=== PATIENT | female | born 1945 | race Caucasian/White ===

== ENCOUNTER → 2017-03-03 | Outpatient (CLI) | payer BC ==
--- NOTE | 2017-03-03 08:47 | KCIC ---
PROCEDURE Complete abdominal ultrasound. HISTORY Elevated liver function tests. TECHNIQUE Real-time ultrasound imaging of the abdomen is performed. COMPARISON None. FINDINGS The liver measures 17.9 cm in length and is homogeneous in appearance. Portal flow is hepatopetal. The pancreas is homogeneous in appearance and no focal enlargement is seen. The gallbladder appears normal and no gallstones or gallbladder wall thickening is seen. No pericholecystic fluid is seen. No positive Henao's sign was elicited during transducer examination of the gallbladder. No extrahepatic biliary ductal dilatation is seen and the extrahepatic bile duct measures 3 mm. The right kidney measures 11.1 cm in length and no hydronephrosis or renal mass or perinephric fluid collection is seen. The left kidney measures 11.2 cm in length and no hydronephrosis or renal mass or perinephric fluid collection is seen. The spleen measures 10.5 cm in length and is homogeneous in appearance. No focal aneurysmal dilatation of the abdominal aorta is seen. Proximal abdominal aorta is obscured due to overlying bowel gas. The IVC is unremarkable. No ascites is seen. IMPRESSION Mild hepatomegaly. Electronically signed by: Pipe Corcoran MD (March 03, 2017 08:46:04)
== END | disposition home or self-care (01) ==
LOC: KCIC US 07:49
PROVIDERS: ATTEND Family Medicine
DX: R16.0 Hepatomegaly, not elsewhere classified (principal)
CPT/HCPCS: 76700

== ENCOUNTER 2020-10-01 05:25 | Emergency (ER) | payer BC, OTHER ==
[~2020-10-01] VITALS: Ht 154.9 cm; Wt 81.8 kg
--- NOTE | 2020-10-01 06:42 | RAD ---
SHOULDER 2+V LEFT, HUMERUS LEFT DATE: 10/01/2020 5:43 AM INDICATION: Reason: FALL / Spl. Instructions: / History: COMPARISON: None. FINDINGS: Acute fracture of the proximal humerus involving the surgical neck with impaction, and greater tuberosity avulsion. Glenohumeral joint is congruent. Moderate degenerative changes of the AC joint. IMPRESSION: Acute displaced proximal humerus fracture. Electronically signed by: John Escobar MD (10/01/2020 6:39 AM) [facility]
--- NOTE | 2020-10-01 06:42 | RAD ---
FOREARM LEFT, HAND LEFT 3V DATE: 10/01/2020 5:43 AM INDICATION: FALL, pain COMPARISON: None. FINDINGS: Bones: There is no evidence of acute fracture or dislocation. Joints: Multifocal mild degenerative changes. Miscellaneous: None. IMPRESSION: No evidence of acute forearm or hand fracture. Electronically signed by: John Escobar MD (10/01/2020 6:37 AM) [facility]
--- NOTE | 2020-10-01 06:50 | ED.ADGEN ---
Past Medical History Past Medical History: Diabetes-Type II, Hypertension Past Surgical History: Other Additional Past Surgical Histo: Stent placement X 8 Smoking Status: Never Smoker Alcohol Use: Rarely General Adult EDM: Chief Complaint: UPPER EXTREMITY INJURY HPI: HPI: Patient is 74-year-old female who presents to the emergency room complaining of left upper arm pain that radiates through her arm. She fell 2 days ago while carrying cans up the steps. She had immediate onset of pain that has progressively gotten worse. She is having a hard time moving her arm today. She denies any numbness. She denies any weakness in her hand. She is taken [id number] medications at home without any relief. She states that the arm is swollen and bruised. Review of Systems: Review of Systems: Complete ROS is negative unless otherwise documented in HPI Current Medications: Current Medications Medications (Trade) Dose Ordered Sig/Tre Start Time Stop Time Status Last Admin Dose Admin Oxycodone/ Acetaminophen (Percocet 5/325) 1 tab 1X ONCE 10/01/20 07:00 10/01/20 07:01 DC 10/01/20 06:27 1 TAB Allergies: Allergies: Allergies Coded Allergies Type Severity Reaction Last Updated Verified No Known Drug Allergies 10/01/20 No Physical Exam: PE: General: Awake, alert, NAD. Well Nourished, well hydrated. Cooperative HEENT: Atraumatic, EOMI, PERRL, airway patent, moist oral mucosa Neck: Supple, trachea midline Respiratory: CTA bilaterally, normal effort, no wheezing/crackles CV: RRR, no murmur, cap refill <2 GI: Soft, nondistended, nontender, no masses MSK: Left upper extremity: Significant swelling and bruising to the upper arm with tenderness upon palpation, decreased range of motion due to pain, normal range of motion and strength of the hand and elbow, 2+ radial pulse, intact sensation including over the deltoid Skin: Warm, dry, intact Neuro: A&O x3, speech NL, sensory and motor grossly intact, no focal deficits Psych: Normal affect, normal mood, not suicidal or homicidal Current Patient Data: Vital Signs: Vital Signs Date Time Temp Pulse Resp B/P (MAP) Pulse Ox O2 Delivery O2 Flow Rate FiO2 10/01/20 06:43 92 18 175/79 (111) 95 Room Air 10/01/20 05:30 98.5 98.5 EKG: EKG: [] Heart Score: Risk Factors: Risk Factors: DM, Current or recent (<one month) smoker, HTN, HLP, family history of CAD, obesity. Risk Scores: Score 0 - 3: 2.5% MACE over next 6 weeks - Discharge Home Score 4 - 6: 20.3% MACE over next 6 weeks - Admit for Clinical Observation Score 7 - 10: 72.7% MACE over next 6 weeks - Early Invasive Strategies Radiology/Procedures: Radiology/Procedures: [] Course & Med Decision Making: Course & Med Decision Making Pertinent Labs and Imaging studies reviewed. (See chart for details) Patient is 74-year-old female presents to the emergency room complaining of pain after a fall 2 days ago. Patient has a humerus fracture. She will be placed in immobilizer. I discussed the case with Dr. Berg who will see her in clinic tomorrow. Patient will be discharged home with Percocet. Patient's test results and vitals while in the ED were fully reviewed and discussed with the patient. Patient is stable and at this time does not need admission to the hospital. We have discussed strict return precautions and the importance of following up with their Primary Care Physician. Patient stated understanding and was given an opportunity to ask any questions. Patient is in agreement with plan. Debi Disclaimer: Debi Disclaimer: This electronic medical record was generated, in whole or in part, using a voice recognition dictation system. Departure Departure Impression: Primary Impression: Fracture, humerus closed Disposition: 01 DC HOME SELF CARE/HOMELESS Condition: STABLE Referrals: PHUONG CRUZ MD (PCP) Patient Instructions: Humerus Fracture, Treated with Immobilization Scripts Oxycodone/Apap 5-325 (PERCOCET 5-325 MG TABLET ) 1 Each Tablet 1 TAB PO PRN Q6HRS PRN for PAIN, #12 TAB 0 Refills Prov: ARLIN LATIF MD 10/01/20 ARLIN LATIF MD Oct 01, 2020 06:50
[2020-10-01] MEDS ORDERED: OXYC1TAB15 PO (06:56)
[2020-10-01 07:00] VITALS: BP 159/85
[2020-10-01] MEDS ORDERED: oxyCODONE/APAP 5/325 1 TAB TABLET PO ONE (07:00)
== END 2020-10-01 07:54 | disposition home or self-care (01) ==
LOC: ER 05:25
DX: S42.202A Unspecified fracture of upper end of left humerus, initial encounter for closed fracture (principal); S40.022A Contusion of left upper arm, initial encounter; E11.9 Type 2 diabetes mellitus without complications; I10 Essential (primary) hypertension; Z95.5 Presence of coronary angioplasty implant and graft; W18.39XA Other fall on same level, initial encounter; Y93.89 Activity, other specified; Y92.89 Other specified places as the place of occurrence of the external cause; Y99.8 Other external cause status
CPT/HCPCS: 29105; 73030; 73060; 73090; 73130; 99285

== ENCOUNTER 2021-02-06 04:36 | Emergency (ER) | payer OTHER ==
[~2021-02-06] VITALS: Ht 154.9 cm; Wt 86.4 kg
[~2021-02-06 04:36] MED LIST: OXYC1TAB15 PO
[2021-02-06] MEDS: DEXAMETHASONE 4 MG TABLET PO ONE (05:14)
[2021-02-06] MEDS ORDERED: LORA10TA68 PO (05:39)
[2021-02-06] MEDS ORDERED: AMOX1TAB61 PO (05:39)
--- NOTE | 2021-02-06 05:39 | PHYS DOC ---
Past Medical History Past Medical History: Anemia, Diabetes-Type II, High Cholesterol, Hypertension Past Surgical History: Other Additional Past Surgical Histo: Stent placement X 8 Smoking Status: Never Smoker Alcohol Use: Rarely General Adult EDM: Chief Complaint: COUGH HPI: HPI: Patient is 75-year-old female who was brought to the emergency department by her . Patient complains of increasing shortness of breath and worsening cough over the past couple days. Patient claims that she has had this cough for the past month. Patient also claims that she has had postnasal drip for the past month. Patient notes that this cough is worse when she is lying flat, does have that she sleeps in a recliner because she is woken by this cough. These coughing fits usually last minutes and cause her ribs to hurt. Patient has past medical history of GERD for which she takes omeprazole and she denies having any episodes of acid reflux recently. Patient also has past medical history of diabetes hypertension hypothyroidism hypercholesterolemia. Patient claims she has taken an [id number]-[id number] sinus medication which she feels does not help her symptoms. Patient denies watery itchy eyes. Patient denies fever chills nausea vomiting. Review of Systems: Review of Systems: Constitutional: Denies fever or chills Eyes: Denies redness or eye pain HENT: Except postnasal drip, denies sore throat Respiratory: Claims have shortness of breath, claims to have frequent coughing fits, claims to have rib pain Cardiovascular: Denies chest pain or palpitations, GI: Denies abdominal pain, nausea, or vomiting : Denies dysuria or hematuria Musculoskeletal: Denies back pain, patient has left shoulder pain Integument: Denies rash or skin lesions Neurologic: Denies headache, focal weakness or sensory changes Complete systems were reviewed and found to be within normal limits, except as documented in this note. Heart Score: C/O Chest Pain: N/A Family History: Family History: No relevant family history Current Medications: Current Medications Medications (Trade) Dose Ordered Sig/Tre Start Time Stop Time Status Last Admin Dose Admin Dexamethasone (Decadron) 10 mg 1X ONCE 02/06/21 05:00 02/06/21 05:02 DC 02/06/21 05:14 10 MG Allergies: Allergies: Allergies Coded Allergies Type Severity Reaction Last Updated Verified No Known Drug Allergies 10/01/20 No Physical Exam: PE: Constitutional: Well developed, well nourished, no acute distress, non-toxic appearance HENT: Normocephalic, atraumatic, left maxillary sinus tenderness to palpation Eyes: PERRL, EOMI, conjunctiva normal, no discharge Neck: Normal range of motion, no tenderness, supple Lungs & Thorax: No respiratory distress, equal chest rise and fall, CTAB, tenderness to palpation along angles of ribs 5 through 10 bilaterally Abdomen: Soft, no tenderness Skin: Warm, dry, no erythema, no rash Back: No tenderness, no CVA tenderness Extremities: No tenderness, reduced range of motion in left arm, tenderness to palpation of left arm Neurologic: Alert and oriented X 3, normal motor function, normal sensory function, no focal deficits noted Psychologic: Affect normal, judgment normal Current Patient Data: Vital Signs: Vital Signs Date Time Temp Pulse Resp B/P (MAP) Pulse Ox O2 Delivery O2 Flow Rate FiO2 02/06/21 04:40 98.7 93 18 207/84 (125) Room Air 98.7 EKG: EKG: [] Radiology/Procedures: Radiology/Procedures: PROCEDURE: CHEST AP ONLY XR CHEST 1V History: Reason: cough / Spl. Instructions: / History: Comparison: None. Findings: No consolidation or pleural effusion. Normal heart size. No pneumothorax. Chronic deformity of the left proximal humerus. Impression: 1. No acute cardiopulmonary process. Electronically signed by: Kevin Kidd DO (02/06/2021 5:42 AM) [facility] Course & Med Decision Making: Course & Med Decision Making 75-year-old female presents to the emergency department with complaint of coughing. Patient claims coughing has increased in severity within the past couple days but has been a chronic issue. Patient also complains of increasing shortness of breath accompanying this increase in cough. Patient notes that she has had postnasal drip for the past month that she feels is contributing to this. Patient was given dexamethasone. Discussed with patient possibility of allergies or infectious etiology related to sinusitis. We discussed plan of taking Claritin and Decadron and observing symptoms for 48 hours, if no improvement plan to take antibiotics. Patient stable for discharge with outpatient follow-up with PCP or ENT. Discussed findings and plan with patient, who acknowledges understanding and agreement. Debi Disclaimer: Debi Disclaimer: This electronic medical record was generated, in whole or in part, using a voice recognition dictation system. Departure Departure Impression: Primary Impression: Sinusitis Qualified Codes: J01.90 - Acute sinusitis, unspecified Disposition: 01 DC HOME SELF CARE/HOMELESS Condition: STABLE Referrals: PHUONG CRUZ MD (PCP) Patient Instructions: Sinusitis, [id number] Additional Instructions: Hold antibiotics for 48 hours. If symptoms worsen or for fever > 100.3 F after 48 hours then start antibiotics as prescribed. Scripts Loratadine (CLARITIN) 10 Mg Tablet 1 TAB PO DAILY for allergy symptoms for 30 Days, #30 TAB 0 Refills Prov: PARTH MCDONALD DO 02/06/21 Amoxicillin/Potassium Clav (AUGMENTIN 875-125 TABLET) 1 Each Tablet 1 TAB PO BID, #14 TAB Prov: PARTH MCDONALD DO 02/06/21 PARTH MCDONALD DO Feb 06, 2021 05:39
--- NOTE | 2021-02-06 05:44 | RAD ---
XR CHEST 1V History: Reason: cough / Spl. Instructions: / History: Comparison: None. Findings: No consolidation or pleural effusion. Normal heart size. No pneumothorax. Chronic deformity of the le ft proximal humerus. Impression: 1. No acute cardiopulmonary process. Electronically signed by: Kevin Kidd DO (02/06/2021 5:42 AM) [facility]
[2021-02-06 05:45] VITALS: BP 158/106
== END 2021-02-06 05:45 | disposition home or self-care (01) ==
LOC: ER 04:36
DX: J01.90 Acute sinusitis, unspecified (principal); R05 Cough; R06.02 Shortness of breath; R09.82 Postnasal drip; D64.9 Anemia, unspecified; E11.9 Type 2 diabetes mellitus without complications; E78.00 Pure hypercholesterolemia, unspecified; I10 Essential (primary) hypertension; Z98.890 Other specified postprocedural states
CPT/HCPCS: 71045; 99283